=== PATIENT | male | born 1970 | race Hispanic/Latino ===

== ENCOUNTER 2023-11-05 19:36 | Emergency (ER) | payer OTHER ==
[~2023-11-05] VITALS: Ht 160 cm; Wt 85.3 kg
[2023-11-05 22:02] VITALS: BP 157/91
[2023-11-05] MEDS ORDERED: IBUPROFEN 800 MG TAB PO ONE (22:30)
[2023-11-05] MEDS ORDERED: LIDOCAINE HCL 1% 20 ML VIAL INJ SCH (22:30)
[2023-11-05] MEDS ORDERED: CLINDAMYCIN 150 MG CAP PO ONE (22:30)
[2023-11-05] MEDS ORDERED: IBUP-2077 PO (22:53)
[2023-11-05] MEDS ORDERED: CLIN-141 PO (22:53)
[2023-11-06 00:07] VITALS: PULSE 89; RESP 20; O2SAT 99
== END 2023-11-06 00:10 | disposition home or self-care (01) ==
LOC: EDH 19:36
DX: L02.415 Cutaneous abscess of right lower limb (principal)
CPT/HCPCS: 10060; 87070; 87077; 87186